=== PATIENT | male | born 1940 | race Hispanic/Latino ===

== ENCOUNTER 2017-03-23 07:37 | Day surgery (SDC) | payer MEDICARE ==
[2017-03-15 09:12] VITALS: BMI 31.9
[2017-03-23] MEDS ORDERED: Propofol 10 mg/ml Inj (20 ML) ONE (08:27)
[2017-03-23] MEDS ORDERED: Sodium Chloride 0.9% 1,000 ML IV SCH (09:15)
[2017-03-23 09:41] VITALS: O2SAT 99
[2017-03-23 10:15] VITALS: TEMP 97.5
[2017-03-23 10:35] VITALS: BP 127/54; PULSE 51; RESP 20
== END 2017-03-23 10:56 | disposition home or self-care (01) ==
LOC: ENDO 07:37
PROVIDERS: ATTEND Specialist
DX: Z12.11 Encounter for screening for malignant neoplasm of colon (principal); K57.30 Diverticulosis of large intestine without perforation or abscess without bleeding; D17.5 Benign lipomatous neoplasm of intra-abdominal organs; K64.8 Other hemorrhoids; I10 Essential (primary) hypertension; E11.9 Type 2 diabetes mellitus without complications; Z86.718 Personal history of other venous thrombosis and embolism; Z79.4 Long term (current) use of insulin
CPT/HCPCS: 45380; 82948; 88305; J2001; J2704; J7040 ×2